=== PATIENT | female | born 1990 | race American Indian/Alaskan Native ===

== ENCOUNTER 2017-12-31 19:25 | Emergency (ER) | payer OTHER ==
[2017-12-31 20:19] VITALS: BP 139/89
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
[2017-12-31] MEDS ORDERED: ULTRAM PO ONE (23:16)
== END 2017-12-31 23:20 | disposition home or self-care (01) ==
LOC: ED 19:25
DX: S16.1XXA Strain of muscle, fascia and tendon at neck level, initial encounter (principal); E04.1 Nontoxic single thyroid nodule; I10 Essential (primary) hypertension; V87.7XXA Person injured in collision between other specified motor vehicles (traffic), initial encounter; Y93.89 Activity, other specified; Y92.89 Other specified places as the place of occurrence of the external cause; Y99.8 Other external cause status
CPT/HCPCS: 70450; 72125; 99283